=== PATIENT | female | born 1970 | race Caucasian/White ===

== ENCOUNTER 2019-10-12 17:00 | Emergency (ER) | payer SELFPAY ==
[~2019-10-12] VITALS: Ht 170.2 cm; Wt 122.5 kg
[~2019-10-12 17:00] MED LIST: ACHD5005 PO; BSP10T PO; BUSP5TAB59 PO; CETI10CA PO; CLIN-62 PO; DCS100C PO; DICL50TA4 PO; DICL75TA2 PO; DULO60CA6 PO; FLUO20CA25 PO; HC A28.3 PR; HYDR1TAB PO; IBP600T1 PO; LORA1TAB PO; METO25TA2 PO; MULT-963 PO; OMEP20TA2 PO; OMG1KC PO; OXYC-12 PO; QNPR20T PO; RNT150T PO; SIMV10TA3 PO; VITAMIN B PO; VNL37.5T PO; ZOLM2.5T5 PO
--- NOTE | 2019-10-12 17:23 | ED GI ---
General Chief Complaint: Rect Problems Stated Complaint: HEMORRHOID ISSUES Nursing Triage Note: pt amb to rm 6 with complaint of thrombosed hemrrhoid. Sepsis Screen: No Definite Risk Source of Information: Patient Exam Limitations: No Limitations History of Present Illness Date Seen by Provider: October 12, 2019 Time Seen by Provider: 17:21 Initial Comments 49-year-old female who presents to the emergency room with complaints of hemorrhoid pain for the past week. She's had numerous hemorrhoids in the past including thrombosed and hemorrhoidectomy. She is concerned that this wound could possibly be coming thrombosed. She has been using hydrocortisone cream/Preparation H and Tucks pads without improvement. Timing/Duration: 1 Week Associated Symptoms: Denies Symptoms Allergies and Home Medications Allergies Coded Allergies: sumatriptan (Unverified Allergy, Unknown, 11/12/11) sumatriptan succinate (Unverified Allergy, Unknown, 11/12/11) ergotamine (Verified Adverse Reaction, Mild, VOMITING, 09/06/12) sulfamethoxazole (Verified Adverse Reaction, Mild, HIVES, 09/06/12) trimethoprim (Verified Adverse Reaction, Mild, HIVES, 09/06/12) Uncoded Allergies: PCN (Allergy, Unknown, HIVES, 12/03/12) Home Medications Buspirone Hcl 5 Mg Tab, 7.5 MG PO BID, (Reported) TAKE 1 AND 1/2 OF A 5 MG TABLET TWICE DAILY (7.5 MG TOTAL TWICE DAILY) Cetirizine Hcl 10 Mg Capsule, 10 MG PO DAILY, (Reported) Diclofenac Sodium 75 Mg Tablet.dr, 75 MG PO BID, (Reported) Docusate Sodium 100 Mg Cap, 100 MG PO BID Prescribed by: MASOUD WALLER on 12/10/12 1000 Duloxetine Hcl 60 Mg Capsule.dr, 60 MG PO DAILY, (Reported) Hydrocodone Bit/Acetaminophen 1 Tab Tablet, 1-2 TAB PO q 4-6 hrs PRN Prescribed by: MASOUD WALLER on 12/10/12 1000 Hydrocortisone/Pramoxine 30 Gm Cream.gm., 0 MD QID PRN APPLY TO AFFECTED AREA Prescribed by: BRITT CORTEZ on 12/16/12 0121 Ibuprofen 600 Mg Tab, 600 MG PO Q6H PRN, (Reported) NEEDED FOR PAIN Ibuprofen 600 Mg Tab, 600 MG PO Q6H Prescribed by: MASOUD WALLER on 12/10/12 1000 Metoprolol Tartrate 25 Mg Tablet, 25 MG PO BID, (Reported) Multivitamin 1 Each Tablet, 1 TAB PO DAILY, (Reported) Norton 3 Polyunsat Fatty Acids 1,000 Mg Cap, 2,000 MG PO BID, (Reported) TAKE 2 (1000 MG) CAPSULES TWICE DAILY Omeprazole 20 Mg Tablet.dr, 20 MG PO DAILY, (Reported) Oxycodone Hcl/Acetaminophen 1 Each Tablet, 1 EACH PO Q4H Use sparingly as needed for uncontrolled pain Prescribed by: BRITT CORTEZ on 12/16/12 0121 Quinapril Hcl 20 Mg Tab, 20 MG PO DAILY, (Reported) Simvastatin 10 Mg Tablet, 10 MG PO DAILY, (Reported) Patient Home Medication List Home Medication List Reviewed: Yes Review of Systems Review of Systems Constitutional: see HPI; No chills, No fever Gastrointestinal: See HPI, Other (hemorrhoids) All Other Systems Reviewed Negative Unless Noted: Yes Past Cwweytx-Ruaxxo-Dflekr Hx Past Med/Social Hx: Reviewed Nursing Past Med/Soc Hx Patient Social History Alcohol Use: Occasionally Uses Recreational Drug Use: No Smoking Status: Current Everyday Smoker Recent Foreign Travel: No Contact w/Someone Who Travel: No Recent Infectious Disease Expo: No Recent Hopitalizations: No Immunizations Up To Date Tetanus Booster (TDap): Unknown Date of Pneumonia Vaccine: Mar 09, 2008 Seasonal Allergies Seasonal Allergies: Yes Past Medical History Surgeries: Yes (DENTAL, HEMORRHOIDDECTOMY, UTERINE ABLATION, COLONOSCOPY) Gallbladder, Hysterectomy Respiratory: Yes Sleep Apnea Cardiac: Yes (SVT) High Cholesterol, Hypertension Neurological: Yes (MIGRAINES) Headaches /Migraines Reproductive Disorders: Yes (MENORRHAGIA, RIGHT OVARIAN CYST) 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 Gastrointestinal: Yes (IBS) Gastroesophageal Reflux, Chronic Constipation, Hemorrhoids, Chronic Diarrhea, Polyps, Hiatal Hernia, Irritable Bowel Musculoskeletal: Yes (CHRONIC GENERALIZED PAIN) Arthritis, Chronic Back Pain Endocrine: Yes Hypothyroidsim Cancer: No Psychosocial: Yes Anxiety, PTSD, Depression Integumentary: No Blood Disorders: No Adverse Reaction/Blood Tranf: No Family Medical History Reviewed Nursing Family Hx Physical Exam Vital Signs Vital Signs - First Documented 10/12/19 17:04 Temp 36.8 Pulse 70 Resp 20 B/P (MAP) 131/75 (93) Pulse Ox 95 O2 Delivery Room Air Capillary Refill : Less Than 3 Seconds Height/Weight/BMI Height: 5'7" Weight: 275lbs. oz. 124.537478my; 42.00 BMI Method:Stated General Appearance: WD/WN, no apparent distress Respiratory: chest non-tender, lungs clear, normal breath sounds, no respiratory distress, no accessory muscle use Cardiovascular: normal peripheral pulses, regular rate, rhythm, no edema, no gallop, no JVD, no murmur Rectal: hemorrhoids (one small pea-sized external hemorrhoid. Normal skin tone and is non-thrombosed. Hemorrhoid is a compressible.) Extremities: normal capillary refill Neurologic/Psychiatric: alert, normal mood/affect, oriented x 3 Skin: normal color, warm/dry Exam Comments Rectal exam was assisted by Derrick Marino RN. Progress/Results/Core Measures Results/Orders My Orders Orders - JIMBO HONG Lidocaine 2% Viscous 15 Ml (Xylocaine Vi (10/12/19 17:30) Medications Given in ED Current Medications Medications Dose Ordered Sig/Rose Route Start Time Stop Time Status Last Admin Dose Admin Lidocaine HCl 30 ml ONCE ONCE PO 10/12/19 17:30 10/12/19 17:31 DC 10/12/19 17:45 30 ML Vital Signs/I&O 10/12/19 10/12/19 17:04 17:51 Temp 36.8 36.8 Pulse 70 70 Resp 20 20 B/P (MAP) 131/75 (93) 131/75 (93) Pulse Ox 95 95 O2 Delivery Room Air Blood Pressure Mean: 93 Progress Progress Note : Progress Note The patient was given viscous lidocaine soaked gauze to assist with discomfort. Instructed to continue home treatment and follow-up. She agrees with plan of car e, plans for discharge, return precautions were given. Departure Impression Primary Impression: External hemorrhoids without complication Disposition: HOME, SELF-CARE Condition: Stable/Unchanged Departure-Patient Inst. Decision time for Depature: 17:22 Referrals: [facility] (PCP) Primary Care Physician MELIZA GUAJARDO (Family) Primary Care Physician Patient Instructions: Hemorrhoids Add. Discharge Instructions: Consisting consume a liquid diet and stool softeners to keep your stool soft to prevent pressure when having a bowel movement. Continue to use your hydrocortisone cream at home. You may use the topical he soaked lidocaine for topical pain relief. Follow-up with your PCP within 1 week for recheck. Return back to the emergency room for worsening symptoms or concerns as needed. All discharge instructions reviewed with patient and/or family. Voiced understanding. JIMBO HONG October 12, 2019 17:23
[2019-10-12] MEDS ORDERED: LIDOCAINE 2% VISCOUS 15 ML UDC PO ONE (17:30)
[2019-10-12 17:51] VITALS: BP 131/75
== END 2019-10-12 17:51 | disposition home or self-care (01) ==
LOC: EDUNIT# 17:00 → ER 17:01
DX: K64.4 Residual hemorrhoidal skin tags (principal); I10 Essential (primary) hypertension; E78.00 Pure hypercholesterolemia, unspecified; G43.909 Migraine, unspecified, not intractable, without status migrainosus; K58.2 Mixed irritable bowel syndrome; K21.9 Gastro-esophageal reflux disease without esophagitis; M54.9 Dorsalgia, unspecified; G89.29 Other chronic pain; M19.91 Primary osteoarthritis, unspecified site; E03.9 Hypothyroidism, unspecified; F41.9 Anxiety disorder, unspecified; F43.10 Post-traumatic stress disorder, unspecified; F32.9 Major depressive disorder, single episode, unspecified; G47.30 Sleep apnea, unspecified; I47.1 Supraventricular tachycardia; F17.200 Nicotine dependence, unspecified, uncomplicated; Z79.899 Other long term (current) drug therapy
CPT/HCPCS: 99282

== ENCOUNTER 2020-12-08 11:58 | Emergency (ER) | payer OTHER ==
[~2020-12-08] VITALS: Ht 170 cm; Wt 113.0 kg
--- NOTE | 2020-12-08 12:15 | ED General ---
General Stated Complaint: NAUSEA,PASSED OUT Source of Information: Patient Exam Limitations: No Limitations History of Present Illness Date Seen by Provider: Dec 08, 2020 Time Seen by Provider: 12:13 Initial Comments To ER by private vehicle with reports of a syncopal event and nausea. She was at Dr. ROLON's office in [facility]. She was going in for a routine appointment. She became nauseated and lightheaded and went back to her car. She then vomited. She then passed out. Upon awakening she had an abrasion to her forehead where she hit the ground, several people standing over her. She has felt lethargic but is starting to come back to normal now. She felt fine upon awakening this morning. She is on Victoza. She denies chest pain or shortness of breath or abdominal pain. She denies headache or neck pain. Timing/Duration: 1-2 Days Severity: Moderate Associated Systoms: Nausea/Vomiting Allergies and Home Medications Allergies Coded Allergies: sumatriptan (Unverified Allergy, Unknown, 11/12/11) sumatriptan succinate (Unverified Allergy, Unknown, 11/12/11) ergotamine (Verified Adverse Reaction, Mild, VOMITING, 09/06/12) sulfamethoxazole (Verified Adverse Reaction, Mild, HIVES, 09/06/12) trimethoprim (Verified Adverse Reaction, Mild, HIVES, 09/06/12) Uncoded Allergies: PCN (Allergy, Unknown, HIVES, 12/03/12) Home Medications Buspirone Hcl 5 Mg Tab, 7.5 MG PO BID, (Reported) TAKE 1 AND 1/2 OF A 5 MG TABLET TWICE DAILY (7.5 MG TOTAL TWICE DAILY) Cetirizine Hcl 10 Mg Capsule, 10 MG PO DAILY, (Reported) Diclofenac Sodium 75 Mg Tablet., 75 MG PO BID, (Reported) Docusate Sodium 100 Mg Cap, 100 MG PO BID Prescribed by: MASOUD WALLER on 12/10/12 1000 Duloxetine Hcl 60 Mg Capsule.dr, 60 MG PO DAILY, (Reported) Hydrocodone Bit/Acetaminophen 1 Tab Tablet, 1-2 TAB PO q 4-6 hrs PRN Prescribed by: MASOUD WALLER on 12/10/12 1000 Hydrocortisone/Pramoxine 30 Gm Cream.gm., 0 GA QID PRN APPLY TO AFFECTED AREA Prescribed by: BRITT CORTEZ on 12/16/12120 Ibuprofen 600 Mg Tab, 600 MG PO Q6H PRN, (Reported) NEEDED FOR PAIN Ibuprofen 600 Mg Tab, 600 MG PO Q6H Prescribed by: MASOUD WALLER on 12/10/12 1000 Metoprolol Tartrate 25 Mg Tablet, 25 MG PO BID, (Reported) Multivitamin 1 Each Tablet, 1 TAB PO DAILY, (Reported) [place] 3 Polyunsat Fatty Acids 1,000 Mg Cap, 2,000 MG PO BID, (Reported) TAKE 2 (1000 MG) CAPSULES TWICE DAILY Omeprazole 20 Mg Tablet.dr, 20 MG PO DAILY, (Reported) Oxycodone Hcl/Acetaminophen 1 Each Tablet, 1 EACH PO Q4H Use sparingly as needed for uncontrolled pain Prescribed by: BRITT CORTEZ on 12/16/12120 Quinapril Hcl 20 Mg Tab, 20 MG PO DAILY, (Reported) Simvastatin 10 Mg Tablet, 10 MG PO DAILY, (Reported) Patient Home Medication List Home Medication List Reviewed: Yes Review of Systems Review of Systems Constitutional: see HPI EENTM: see HPI Respiratory: no symptoms reported Cardiovascular: no symptoms reported Genitourinary: no symptoms reported Musculoskeletal: no symptoms reported Skin: no symptoms reported Psychiatric/Neurological: No Symptoms Reported Hematologic/Lymphatic: No Symptoms Reported Immunological/Allergic: no symptoms reported Past Jqsdbqk-Xqxkoj-Egbwdo Hx Immunizations Up To Date Tetanus Booster (TDap): Unknown Seasonal Allergies Seasonal Allergies: Yes Past Medical History Surgeries: Yes (DENTAL, HEMORRHOIDDECTOMY, UTERINE ABLATION, COLONOSCOPY) Gallbladder, Hysterectomy Respiratory: Yes Sleep Apnea Cardiac: Yes (SVT) High Cholesterol, Hypertension Neurological: Yes (MIGRAINES) Headaches /Migraines Reproductive Disorders: Yes (MENORRHAGIA, RIGHT OVARIAN CYST) 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 oz. 124.931432vd; 42.00 BMI Method:Stated General Appearance: No Apparent Distress, WD/WN, Other (Abrasion to the midline forehead. No epistaxis.) Eyes: Bilateral Eye Normal Inspection, Bilateral Eye PERRL, Bilateral Eye EOMI HEENT: PERRL/EOMI, TMs Normal Neck: Full Range of Motion, Normal Inspection Respiratory: Normal Breath Sounds, No Accessory Muscle Use, No Respiratory Distress Cardiovascular: Regular Rate, Rhythm, Normal Peripheral Pulses Gastrointestinal: Normal Bowel Sounds, Non Tender, Soft Extremity: Normal Capillary Refill, Normal Inspection Neurologic/Psychiatric: Alert, Oriented x3 Skin: Normal Color, Warm/Dry Progress/Results/Core Measures Suspected Sepsis SIRS Temperature: Pulse: Respiratory Rate: Laboratory Tests 12/08/20 12:12: White Blood Count 9.7 Blood Pressure / Mean: Laboratory Tests 12/08/20 12:12: Creatinine 0.95, Platelet Count 308, Total Bilirubin 0.2 Results/Orders Lab Results Laboratory Tests Test 12/08/20 12:12 12/08/20 12:39 Range/Units White Blood Count 9.7 4.3-11.0 10^3/uL Red Blood Count 4.14 3.80-5.11 10^6/uL Hemoglobin 12.9 11.5-16.0 g/dL Hematocrit 39 35-52 % Mean Corpuscular Volume 95 80-99 fL Mean Corpuscular Hemoglobin 31 25-34 pg Mean Corpuscular Hemoglobin Concent 33 32-36 g/dL Red Cell Distribution Width 11.9 10.0-14.5 % Platelet Count 308 130-400 10^3/uL Mean Platelet Volume 9.6 9.0-12.2 fL Immature Granulocyte % (Auto) 1 % Neutrophils (%) (Auto) 67 42-75 % Lymphocytes (%) (Auto) 24 12-44 % Monocytes (%) (Auto) 7 0-12 % Eosinophils (%) (Auto) 2 0-10 % Basophils (%) (Auto) 0 0-10 % Neutrophils # (Auto) 6.5 1.8-7.8 10^3/uL Lymphocytes # (Auto) 2.3 1.0-4.0 10^3/uL Monocytes # (Auto) 0.6 0.0-1.0 10^3/uL Eosinophils # (Auto) 0.2 0.0-0.3 10^3/uL Basophils # (Auto) 0.0 0.0-0.1 10^3/uL Immature Granulocyte # (Auto) 0.1 0.0-0.1 10^3/uL Sodium Level 138 135-145 MMOL/L Potassium Level 4.4 3.6-5.0 MMOL/L Chloride Level 102 98-107 MMOL/L Carbon Dioxide Level 25 21-32 MMOL/L Anion Gap 11 5-14 MMOL/L Blood Urea Nitrogen 16 7-18 MG/DL Creatinine 0.95 0.60-1.30 MG/DL Estimat Glomerular Filtration Rate > 60 BUN/Creatinine Ratio 17 Glucose Level 173 H 70-105 MG/DL Calcium Level 9.9 8.5-10.1 MG/DL Corrected Calcium 9.7 8.5-10.1 MG/DL Total Bilirubin 0.2 0.1-1.0 MG/DL Aspartate Amino Transf (AST/SGOT) 52 H 5-34 U/L Alanine Aminotransferase (ALT/SGPT) 102 H 0-55 U/L Alkaline Phosphatase 65 40-136 U/L Troponin I < 0.028 <0.028 NG/ML Total Protein 6.8 6.4-8.2 GM/DL Albumin 4.3 3.2-4.5 GM/DL Urine Color YELLOW Urine Clarity CLEAR Urine pH 5.5 5-9 Urine Specific Keller 1.020 1.016-1.022 Urine Protein NEGATIVE NEGATIVE Urine Glucose (UA) NEGATIVE NEGATIVE Urine Ketones NEGATIVE NEGATIVE Urine Nitrite NEGATIVE NEGATIVE Urine Bilirubin NEGATIVE NEGATIVE Urine Urobilinogen 0.2 < = 1.0 MG/DL Urine Leukocyte Esterase 1+ H NEGATIVE Urine RBC (Auto) NEGATIVE NEGATIVE Urine RBC NONE /HPF Urine WBC 5-10 H /HPF Urine Squamous Epithelial Cells 2-5 /HPF Urine Crystals NONE /LPF Urine Bacteria TRACE /HPF Urine Casts NONE /LPF Urine Mucus NEGATIVE /LPF Urine Culture Indicated YES My Orders Orders - TATIANA ZAVALA LOAN PROCESSOR Cbc With Automated Diff (12/08/20 12:09) Comprehensive Metabolic Panel (12/08/20 12:09) Ua Culture If Indicated (12/08/20 12:09) Ed Iv/Invasive Line Start (12/08/20 12:09) Ct Head/Cervical Spine Wo (12/08/20 12:09) Ekg Tracing (12/08/20 12:09) Continuous Ekg Monitoring (12/08/20 12:09) Troponin I (12/08/20 12:09) Urine Culture (12/08/20 12:39) Vital Signs/I&O 12/08/20 12:00 Temp 36.8 Pulse 88 Resp 18 B/P (MAP) 126/82 (97) Pulse Ox 95 Capillary Refill : Diagnostic Imaging Diagonstic Imaging: CT Comments NAME: SENDY LOERA [facility] REC#: [id number] PT STATUS: REG ER : 1970 PHYSICIAN: TATIANA ZAVALA APRN ADMIT DATE: 12/08/20/ER Draft Date of Exam:12/08/20 CT HEAD/CERVICAL SPINE WO Clinical indication: Patient is status post fall. Patient has syncopal episode outside doctor's office. Patient passed out hitting her forehead on concrete. Exam: Axial Head CT without IV contrast with sagittal and coronal reformations. Axial CT scan of the cervical spine with sagittal and coronal reformations. Auto Exposure Controls were utilized during the CT exam to meet ALARA standards for radiation dose reduction. Comparison: None. Findings: Head CT: There is no evidence of acute cerebral infarct, intracranial hemorrhage, or gross mass effect. The brain parenchymal volume appears appropriate for patient's age. There is normal nevarez-white matter distinction. There is no significant midline shift or herniation. There is no evidence of hydrocephalus. The basal cisterns are unremarkable. There are numerous small lytic lesions involving the skull. Otherwise the skull, extracranial soft tissue, and orbits are unremarkable. The paranasal sinuses are unremarkable. Temporal bones show no significant abnormality. Cervical spine: Patient body habitus and streak artifact limits evaluation of the C5-T2 vertebra. There is no gross cervical spine fracture or dislocation. There is loss of cervical lordosis which is nonspecific. There are cervical spine vertebral body spurs and facet arthropathy. Ununited posterior elements of the C2 vertebra noted. There are no definite lytic lesions involving the cervical spine as visualized. Visualized neck soft tissue structures and upper lung juarez are unremarkable. Impression: 1: There is no evidence of acute intracranial process. There is no intracranial hemorrhage or skull fracture. 2: There is cervical spine degenerative disease with no acute fracture or dislocation. 3: There are numerous lytic lesions throughout the skull which are nonspecific. Etiology such as myeloma or metastatic disease should be excluded. Nuclear medicine whole body bone scan may help better evaluate. Dictated on workstation # [id number] Dict: 12/08/20 1312 Trans: 12/08/20 1335 [id number] Interpreted by: LOIS YU MD Electronically signed by: Departure Impression Primary Impression: Syncope Additional Impression: Lytic lesions of skull Disposition: HOME, SELF-CARE Condition: Stable Departure-Patient Inst. Decision time for Depature: 13:24 Referrals: [facility] (PCP) Primary Care Physician DALTON CARNEY APRN (Family) Primary Care Physician Patient Instructions: Syncope (Fainting) (DC) Add. Discharge Instructions: Follow up With primary care within 1 week for further evaluation of the abnormal appearance of your skull on CT. This will likely be followed up with a whole body bone scan. Return to ER for any concerns. Copy Copies To 1: JOSÉ MIGUEL COTTO PETER J APRN Dec 08, 2020 12:15
[2020-12-08 12:19] LABS: BASOPHILS % (AUTO) 0 % (0-10); EOSINOPHILS # (AUTO) 0.2 10^3/uL (0.0-0.3); EOSINOPHILS % (AUTO) 2 % (0-10); HEMATOCRIT 39 % (35-52); HEMOGLOBIN 12.9 g/dL (11.5-16.0); LYMPHOCYTES # (AUTO) 2.3 10^3/uL (1.0-4.0); LYMPHOCYTES % (AUTO) 24 % (12-44); MEAN CORPUSCULAR HEMOGLOBIN 31 pg (25-34); MEAN CORPUSCULAR HGB CONC 33 g/dL (32-36); MEAN CORPUSCULAR VOLUME 95 fL (80-99); MEAN PLATELET VOLUME 9.6 fL (9.0-12.2); MONOCYTES # (AUTO) 0.6 10^3/uL (0.0-1.0); MONOCYTES % (AUTO) 7 % (0-12); NEUTROPHILS # (AUTO) 6.5 10^3/uL (1.8-7.8); NEUTROPHILS % (AUTO) 67 % (42-75); PLATELET COUNT 308 10^3/uL (130-400); WHITE BLOOD COUNT 9.7 10^3/uL (4.3-11.0)
[2020-12-08 12:29] LABS: ALBUMIN 4.3 GM/DL (3.2-4.5); CHLORIDE 102 MMOL/L (98-107); POTASSIUM 4.4 MMOL/L (3.6-5.0); SODIUM 138 MMOL/L (135-145)
[2020-12-08 12:30] LABS: CALCIUM 9.9 MG/DL (8.5-10.1)
[2020-12-08 12:31] LABS: GLUCOSE 173 MG/DL (70-105)
[2020-12-08 12:32] LABS: TOTAL PROTEIN 6.8 GM/DL (6.4-8.2)
[2020-12-08 12:33] LABS: CARBON DIOXIDE 25 MMOL/L (21-32)
[2020-12-08 12:34] LABS: BILIRUBIN,TOTAL 0.2 MG/DL (0.1-1.0)
[2020-12-08 12:35] LABS: ALKALINE PHOSPHATASE 65 U/L (40-136); CREATININE SERUM 0.95 MG/DL (0.60-1.30); GFR ESTIMATED > 60
[2020-12-08 12:36] LABS: BUN/CREATININE RATIO 17
[2020-12-08 12:38] LABS: ALANINE AMINOTRANSFERASE 102 U/L (0-55)
[2020-12-08 12:47] LABS: BILIRUBIN,URINE NEGATIVE (NEGATIVE); CLARITY,URINE CLEAR; COLOR,URINE YELLOW; GLUCOSE, URINE (UA) NEGATIVE (NEGATIVE); KETONES,URINE NEGATIVE (NEGATIVE); LEUKOCYTE ESTERASE ,URINE 1+ (NEGATIVE); NITRITE,URINE NEGATIVE (NEGATIVE); PH,URINE 5.5 (5-9); PROTEIN,URINE NEGATIVE (NEGATIVE)
[2020-12-08 13:00] LABS: BACTERIA,URINE TRACE /HPF
--- NOTE | 2020-12-08 13:36 | Diagnostic Imaging Report ---
Clinical indication: Patient is status post fall. Patient has syncopal episode outside doctor's office. Patient passed out hitting her forehead on concrete. Exam: Axial Head CT without IV contrast with sagittal and coronal reformations. Axial CT scan of the cervical spine with sagittal and coronal reformations. Auto Exposure Controls were utilized during the CT exam to meet ALARA standards for radiation dose reduction. Comparison: None. Findings: Head CT: There is no evidence of acute cerebral infarct, intracranial hemorrhage, or gross mass effect. The brain parenchymal volume appears appropriate for patient's age. There is normal nevarez-white matter distinction. There is no significant midline shift or herniation. There is no evidence of hydrocephalus. The basal cisterns are unremarkable. There are numerous small lytic lesions involving the skull. Otherwise the skull, extracranial soft tissue, and orbits are unremarkable. The paranasal sinuses are unremarkable. Temporal bones show no significant abnormality. Cervical spine: Patient body habitus and streak artifact limits evaluation of the C5-T2 vertebra. There is no gross cervical spine fracture or dislocation. There is loss of cervical lordosis which is nonspecific. There are cervical spine vertebral body spurs and facet arthropathy. Ununited posterior elements of the C2 vertebra noted. There are no definite lytic lesions involving the cervical spine as visualized. Visualized neck soft tissue structures and upper lung juarez are unremarkable. Impression: 1: There is no evidence of acute intracranial process. There is no intracranial hemorrhage or skull fracture. 2: There is cervical spine degenerative disease with no acute fracture or dislocation. 3: There are numerous lytic lesions throughout the skull which are nonspecific. Etiology such as myeloma or metastatic disease should be excluded. Nuclear medicine whole body bone scan may help better evaluate. Dictated by: Dictated on workstation # [id number]
[2020-12-08 13:57] VITALS: BP 126/82
== END 2020-12-08 13:57 | disposition home or self-care (01) ==
LOC: EDUNIT# 11:58 → ER 12:00
DX: S00.81XA Abrasion of other part of head, initial encounter (principal); R55 Syncope and collapse; M89.50 Osteolysis, unspecified site; I10 Essential (primary) hypertension; G47.30 Sleep apnea, unspecified; E78.00 Pure hypercholesterolemia, unspecified; K21.9 Gastro-esophageal reflux disease without esophagitis; G89.29 Other chronic pain; F41.9 Anxiety disorder, unspecified; F32.9 Major depressive disorder, single episode, unspecified; M54.9 Dorsalgia, unspecified; Z79.899 Other long term (current) drug therapy; Z79.891 Long term (current) use of opiate analgesic; W22.8XXA Striking against or struck by other objects, initial encounter
CPT/HCPCS: 36415; 70450; 72125; 80053; 81000; 84484; 85025; 87088; 93005

== ENCOUNTER → 2020-12-20 | Outpatient (CLI) | payer SELFPAY ==
--- NOTE | 2020-12-20 16:17 | Diagnostic Imaging Report ---
INDICATION: Fell on December 08 hitting her head. COMPARISON: CT scan of 12/08/2020. TECHNIQUE: 27.0 mCi of technetium 99M MDP was given IV. Three hour delayed images were obtained. FINDINGS: There is good uptake throughout the skeletal system. No foci of abnormal uptake are demonstrated. Specifically, there is no activity in the calvarium to correlate with the lytic lesions noted on the CT scan. IMPRESSION: Normal whole body bone scan. This does not exclude multiple myeloma as a differential as myeloma due to lytic nature rarely shows increased uptake with a bone scan. Dictated by: Dictated on workstation # [id number]
== END ==
LOC: CARD 12:00
PROVIDERS: ATTEND Nurse Practitioner
DX: R93.0 Abnormal findings on diagnostic imaging of skull and head, not elsewhere classified (principal); W19.XXXA Unspecified fall, initial encounter
CPT/HCPCS: 78306; A9503

== ENCOUNTER 2020-12-22 14:36 | Outpatient (RCR) | payer SELFPAY ==
[2020-12-22 16:18] LABS: BASOPHILS % (AUTO) 1 % (0-10); EOSINOPHILS # (AUTO) 0.3 10^3/uL (0.0-0.3); EOSINOPHILS % (AUTO) 4 % (0-10); HEMATOCRIT 40 % (35-52); HEMOGLOBIN 13.1 g/dL (11.5-16.0); LYMPHOCYTES # (AUTO) 2.8 10^3/uL (1.0-4.0); LYMPHOCYTES % (AUTO) 33 % (12-44); MEAN CORPUSCULAR HEMOGLOBIN 31 pg (25-34); MEAN CORPUSCULAR HGB CONC 33 g/dL (32-36); MEAN CORPUSCULAR VOLUME 93 fL (80-99); MEAN PLATELET VOLUME 9.7 fL (9.0-12.2); MONOCYTES # (AUTO) 0.6 10^3/uL (0.0-1.0); MONOCYTES % (AUTO) 7 % (0-12); NEUTROPHILS # (AUTO) 4.6 10^3/uL (1.8-7.8); NEUTROPHILS % (AUTO) 55 % (42-75); PLATELET COUNT 336 10^3/uL (130-400); WHITE BLOOD COUNT 8.3 10^3/uL (4.3-11.0)
[2020-12-22 16:38] LABS: ALBUMIN 4.4 GM/DL (3.2-4.5); BILIRUBIN,TOTAL 0.3 MG/DL (0.1-1.0); CALCIUM 9.7 MG/DL (8.5-10.1); CREATININE SERUM 0.97 MG/DL (0.60-1.30); POTASSIUM 4.1 MMOL/L (3.6-5.0); TOTAL PROTEIN 7.1 GM/DL (6.4-8.2)
[2020-12-27 12:55] LABS: IMMUNOFIX PATH REPORT NUMBER Complete (Complete)
== END 2020-12-23 15:04 | disposition home or self-care (01) ==
LOC: ONC 14:36
PROVIDERS: ATTEND Internal Medicine Hematology & Oncology
DX: Z12.31 Encounter for screening mammogram for malignant neoplasm of breast (principal); M89.9 Disorder of bone, unspecified; R05 Cough; R06.02 Shortness of breath; Z86.010 Personal history of colon polyps; Z72.0 Tobacco use
CPT/HCPCS: 80053; 82232; 82784 ×3; 83883; 83970; 84155; 84165; 84166; 85025; 86334; 86335; G0463; 99214

== ENCOUNTER → 2021-01-03 | Outpatient (CLI) | payer OTHER ==
--- NOTE | 2021-01-03 16:45 | Diagnostic Imaging Report ---
INDICATION: Routine screening. COMPARISON is made with prior mammograms 05/23/2016 and 06/24/2008. 2-D and 3-D bilateral screening mammography was performed with CAD. Scattered fibroglandular densities are identified bilaterally. There are scattered benign calcifications. Intraparenchymal lymph node the upper outer right breast posterior depth is noted. No spiculated mass or malignant appearing microcalcifications are seen. The axillae are unremarkable. IMPRESSION: BI-RADS Category 2 No mammographic features suspicious for malignancy are identified. ACR BI-RADS Category 2: Benign findings. Result letter will be mailed to the patient. Note: At least 10% of breast cancer is not imaged by mammography. Dictated by: Dictated on workstation # [id number]
== END ==
LOC: RAD 15:15
PROVIDERS: ATTEND Internal Medicine Hematology & Oncology
DX: Z12.31 Encounter for screening mammogram for malignant neoplasm of breast (principal); Z72.0 Tobacco use
CPT/HCPCS: 77063; 77067

== ENCOUNTER → 2021-01-03 | Outpatient (CLI) | payer OTHER ==
--- NOTE | 2021-01-03 16:14 | Diagnostic Imaging Report ---
PROCEDURE: CT chest without contrast. TECHNIQUE: Multiple contiguous axial images were obtained through the chest without the use of intravenous contrast. Auto Exposure Controls were utilized during the CT exam to meet ALARA standards for radiation dose reduction. INDICATION: Short of breath, tobacco use, cough. FINDINGS: The lungs are well-expanded with no mass or infiltrate. There is no interstitial lung disease. There is no bronchiectasis. There is no effusion or pneumothorax. There is no mediastinal or hilar adenopathy. There is no pericardial effusion. There is no bony abnormality. IMPRESSION: No abnormality is seen. Dictated by: Dictated on workstation # [id number]
== END ==
LOC: RAD 14:53
PROVIDERS: ATTEND Internal Medicine Hematology & Oncology
DX: R05 Cough (principal); R06.02 Shortness of breath; R93.7 Abnormal findings on diagnostic imaging of other parts of musculoskeletal system; Z72.0 Tobacco use
CPT/HCPCS: 71250

== ENCOUNTER 2021-01-05 12:15 | Day surgery (SDC) | payer OTHER ==
[2021-01-05] VITALS (10 sets, daily range): BP systolic 102–138; BP diastolic 54–89
[~2021-01-05] VITALS: Ht 170 cm; Wt 113.0 kg
[2021-01-05 11:32] LABS: ABSOLUTE RETIC # 121 10e9/uL (24-90); BASOPHILS # (AUTO) 0.1 10^3/uL (0.0-0.1); BASOPHILS % (AUTO) 1 % (0-10); EOSINOPHILS # (AUTO) 0.3 10^3/uL (0.0-0.3); EOSINOPHILS % (AUTO) 3 % (0-10); HEMATOCRIT 42 % (35-52); LYMPHOCYTES # (AUTO) 2.4 10^3/uL (1.0-4.0); LYMPHOCYTES % (AUTO) 26 % (12-44); MEAN CORPUSCULAR HEMOGLOBIN 31 pg (25-34); MEAN CORPUSCULAR HGB CONC 34 g/dL (32-36); MEAN CORPUSCULAR VOLUME 93 fL (80-99); MEAN PLATELET VOLUME 9.5 fL (9.0-12.2); MONOCYTES # (AUTO) 0.7 10^3/uL (0.0-1.0); MONOCYTES % (AUTO) 8 % (0-12); NEUTROPHILS # (AUTO) 5.8 10^3/uL (1.8-7.8); NEUTROPHILS % (AUTO) 63 % (42-75); PLATELET COUNT 390 10^3/uL (130-400); RETICULOCYTE % 2.68 % (0.50-2.40); WHITE BLOOD COUNT 9.3 10^3/uL (4.3-11.0)
[2021-01-05 11:40] LABS: PROTHROMBIN TIME PATIENT 13.7 SEC (12.2-14.7)
[2021-01-05 11:44] LABS: EOSINOPHILS % (MANUAL) 1 %; LYMPHOCYTES % (MANUAL) 28 %; MONOCYTES % (MANUAL) 7 %; NEUTROPHILS % (MANUAL) 64 %; RBC MORPH NORMAL
[~2021-01-05 12:15] MED LIST changes: +LIDOCAINE 1% INJ 20 ML 20 ML VIAL INJ ONE; +MIDAZOLAM 2 MG/2 ML (VERSED) VIAL IVP ONE; +NS IV 1000 ML 1,000 ML IV STA; +fentaNYL INJ 100 MCG/2 ML AMP IVP ONE
[2021-01-05] MEDS ORDERED: HYDROcodone/APAP 5 MG/325 MG (LORTAB) TAB PO PRN (13:15)
--- NOTE | 2021-01-05 13:51 | Pre-Op Note & Conscious Sedat ---
Pre-Operative Progress Note H&P Reviewed The H&P was reviewed, patient examined and no changes noted. Date H&P Reviewed: Jan 05, 2021 Time H&P Reviewed: 12:00 Pre-Op Diagnosis: lytic bone lesion Conscious Sedation Pre-Proced Time 12:00 ASA Score 2 For ASA 3 and 4: Consider anesthesia and medical clearance. Also, for patients with a history of failed moderate sedation consider anesthesia. Airway Lungs Heart ASA score ASA 1: a normal healthy patient ASA 2: a patient with a mild systemic disease (mid diabetes, controlled hypertension, obesity ASA 3: a patient with a severe systemic disease that limits activity (angina, COPD, prior Myocardial infarction) ASA 4: a patient with an incapacitating disease that is a constant threat to life (CHF, renal failure) ASA 5: a moribund patient not expected to survive 24 hrs. (ruptured aneurysm) ASA 6: a declared brain- patient whose organs are being harvested. For emergent operations, add the letter E after the classification Mallampati Classification Grade 2 Sedation Plan Analgesia, Amnesia, Plan communicated to team members, Discussed options with p atient/fam, Discussed risks with patient/fam The patient is an appropriate candidate to undergo the planned procedure, sedation, and anesthesia. The patient immediately re-assessed prior to indication. JULIANN LYONS MD Jan 05, 2021 13:51
--- NOTE | 2021-01-05 14:31 | Diagnostic Imaging Report ---
Indication: Lytic bone lesions. Patient presents for CT-guided bone marrow aspiration and biopsy. Patient is brought to the CT suite placed on table in the prone position. Axial imaging through the pelvis was performed to evaluate appropriate entry site. The skin of the low back was prepped and draped in usual sterile fashion. Small amount of 1% lidocaine was utilized for local anesthesia. Procedure was performed utilizing conscious sedation with radiology nursing and constant patient monitoring. Patient was given a total of 50 mcg of fentanyl intravenously. Total procedure time 6 minutes. Bone marrow needle was advanced and placed with its tip along the posterior cortex of the right iliac bone. The needle was advanced through the posterior cortex utilizing a bone marrow drill. 2 bone marrow aspirates were then obtained. Next, the drill was utilized to obtain a bone marrow core biopsy. The needle was removed and hemostasis was obtained using manual compression. Patient tolerated the procedure well and left the department in stable condition. IMPRESSION: Successful CT-guided bone marrow aspiration and core biopsy utilizing conscious sedation. Pathology results are currently pending. Dictated by: Dictated on workstation # [id number]
== END 2021-01-05 15:08 ==
LOC: RAD 12:15 → SDC 13:00 → RAD 15:08
PROVIDERS: ATTEND Internal Medicine Hematology & Oncology
DX: R70.1 Abnormal plasma viscosity (principal); M89.8X9 Other specified disorders of bone, unspecified site
CPT/HCPCS: 36415; 38222; 77012; 85007; 85027; 85045; 85055; 85610; 85730; 88237; 88264

== ENCOUNTER → 2021-01-31 | Outpatient (CLI) | payer OTHER ==
[~2021-01-31] MED LIST changes: -LIDOCAINE 1% INJ 20 ML 20 ML VIAL INJ ONE; -MIDAZOLAM 2 MG/2 ML (VERSED) VIAL IVP ONE; -NS IV 1000 ML 1,000 ML IV STA; -fentaNYL INJ 100 MCG/2 ML AMP IVP ONE
--- NOTE | 2021-01-31 13:13 | Diagnostic Imaging Report ---
INDICATION: Abnormal CT scan demonstrating multiple lytic lesions within the skull. TECHNIQUE: Serum blood glucose level at the time of injection was 140 mg/dL. Patient was administered 14.7 mCi F-18 FDG intravenously in the left antecubital location, and whole body PET imaging was performed. Noncontrast CT was also performed for attenuation correction and anatomic correlation. COMPARISON: No prior PET/CT studies are available for comparison. FINDINGS: There is symmetric activity throughout the brain. Soft tissues of the neck are unremarkable apart from some small areas of mild uptake involving the mandible at the midline and right parasymphyseal location. No correlate on the CT images is identified. No mediastinal or hilar hypermetabolism is seen. No definite pulmonary parenchymal hypermetabolism is identified. There is physiologic activity throughout the GI and tract. No suspicious hypermetabolic focus is seen. No osteolytic lesions are identified. Bilateral lower extremities are unremarkable. IMPRESSION: Essentially unremarkable whole body PET/CT study. No suspicious region of hypermetabolism is identified. Dictated by: Dictated on workstation # [id number]
== END ==
LOC: RAD 09:00
PROVIDERS: ATTEND Internal Medicine Hematology & Oncology
DX: M89.9 Disorder of bone, unspecified (principal)
CPT/HCPCS: 78816; A9552

== ENCOUNTER 2021-02-01 13:10 | Outpatient (RCR) | payer OTHER ==
[2021-02-14] MEDS ORDERED: BUDE10.2 IH (12:55)
[2021-02-14] MEDS ORDERED: MELO-170 PO (13:17)
[2021-02-14] MEDS ORDERED: RT-ALBUINH IH (13:17)
[2021-02-14] MEDS ORDERED: BREX1TAB PO (13:17)
[2021-02-14] MEDS ORDERED: OXYB10TA29 PO (13:17)
[2021-02-14] MEDS ORDERED: CYAN25008 SL (13:17)
[2021-02-14] MEDS ORDERED: GLIP10TA24 PO (13:17)
[2021-02-14] MEDS ORDERED: MONT10TA32 PO (13:17)
[2021-02-14] MEDS ORDERED: MMT17NA NS (13:17)
[2021-02-14] MEDS ORDERED: CLN.1T PO (13:17)
[2021-02-14] MEDS ORDERED: PSEU120T17 PO (13:17)
[2021-02-14] MEDS ORDERED: DULO60CA59 PO (13:17)
[2021-02-14] MEDS ORDERED: HYDR25TA4 PO (13:17)
[2021-02-14] MEDS ORDERED: EMPA10TA PO (13:17)
[2021-02-14] MEDS ORDERED: LISI20TA26 PO (13:17)
[2021-02-14] MEDS ORDERED: METF-397 PO (13:17)
[2021-02-14] MEDS ORDERED: LEVO112C4 PO (13:17)
[2021-02-14] MEDS ORDERED: GEMF600T88 PO (13:17)
[2021-02-14] MEDS ORDERED: PANT40TA52 PO (13:17)
[2021-02-14] MEDS ORDERED: SPIR25TA5 PO (13:17)
== END 2021-04-24 | disposition home or self-care (01) ==
LOC: ONC 13:10
PROVIDERS: ATTEND Internal Medicine Hematology & Oncology
DX: M89.9 Disorder of bone, unspecified (principal); I10 Essential (primary) hypertension; E03.9 Hypothyroidism, unspecified; M79.7 Fibromyalgia; E78.5 Hyperlipidemia, unspecified; E11.9 Type 2 diabetes mellitus without complications; Z80.0 Family history of malignant neoplasm of digestive organs; F17.210 Nicotine dependence, cigarettes, uncomplicated; Z79.84 Long term (current) use of oral hypoglycemic drugs; Z79.899 Other long term (current) drug therapy; Z80.1 Family history of malignant neoplasm of trachea, bronchus and lung; Z86.010 Personal history of colon polyps
CPT/HCPCS: 99213

== ENCOUNTER 2021-02-14 05:44 | Outpatient (CLI) | payer OTHER ==
[~2021-02-14] VITALS: Ht 170 cm; Wt 126.8 kg
[2021-02-14] MEDS ORDERED: BUDE10.2 IH (12:55)
[2021-02-14] MEDS ORDERED: DULO60CA59 PO (13:17)
[2021-02-14] MEDS ORDERED: BREX1TAB PO (13:17)
[2021-02-14] MEDS ORDERED: SPIR25TA5 PO (13:17)
[2021-02-14] MEDS ORDERED: GEMF600T88 PO (13:17)
[2021-02-14] MEDS ORDERED: OXYB10TA29 PO (13:17)
[2021-02-14] MEDS ORDERED: METF-397 PO (13:17)
[2021-02-14] MEDS ORDERED: PANT40TA52 PO (13:17)
[2021-02-14] MEDS ORDERED: GLIP10TA24 PO (13:17)
[2021-02-14] MEDS ORDERED: CYAN25008 SL (13:17)
[2021-02-14] MEDS ORDERED: LISI20TA26 PO (13:17)
[2021-02-14] MEDS ORDERED: HYDR25TA4 PO (13:17)
[2021-02-14] MEDS ORDERED: RT-ALBUINH IH (13:17)
[2021-02-14] MEDS ORDERED: CLN.1T PO (13:17)
[2021-02-14] MEDS ORDERED: PSEU120T17 PO (13:17)
[2021-02-14] MEDS ORDERED: MONT10TA32 PO (13:17)
[2021-02-14] MEDS ORDERED: MMT17NA NS (13:17)
[2021-02-14] MEDS ORDERED: MELO-170 PO (13:17)
[2021-02-14] MEDS ORDERED: EMPA10TA PO (13:17)
[2021-02-14] MEDS ORDERED: LEVO112C4 PO (13:17)
== END 2021-02-14 15:00 | disposition home or self-care (01) ==
LOC: PREOP 05:44
PROVIDERS: ATTEND Surgery
DX: Z01.818 Encounter for other preprocedural examination (principal)

== ENCOUNTER 2021-02-21 10:41 | Day surgery (SDC) | payer OTHER ==
[~2021-02-21] VITALS: Ht 170.2 cm; Wt 126.6 kg
[~2021-02-21 10:41] MED LIST changes: +BREX1TAB PO; +BUDE10.2 IH; +CLN.1T PO; +CYAN25008 SL; +DULO60CA59 PO; +EMPA10TA PO; +GEMF600T88 PO; +GLIP10TA24 PO; +HYDR25TA4 PO; +LACTATED RINGERS 1,000 ML IV STA; +LEVO112C4 PO; +LISI20TA26 PO; +MELO-170 PO; +METF-397 PO; +MMT17NA NS; +MONT10TA32 PO; +OXYB10TA29 PO; +PANT40TA52 PO; +PSEU120T17 PO; +RT-ALBUINH IH; +SPIR25TA5 PO
[2021-02-21] MEDS ORDERED: LACTATED RINGERS 1,000 ML IV ONE (10:43)
[2021-02-21 11:00] VITALS: BP 106/67
[2021-02-21] MEDS ORDERED: MIDAZOLAM 2 MG/2 ML (VERSED) VIAL ONE (11:38)
[2021-02-21] MEDS ORDERED: proPOfol 200 MG/20 ML (DIPRIVAN) VIAL IV ONE (11:39)
--- NOTE | 2021-02-21 11:39 | Progress Note-Pre Operative ---
Pre-Operative Progress Note H&P Reviewed The H&P was reviewed, patient examined and no changes noted. Date Seen by Provider: Feb 21, 2021 Time Seen by Provider: 11:39 Date H&P Reviewed: Feb 21, 2021 Time H&P Reviewed: 11:39 Pre-Operative Diagnosis: hx polyps DEANNE RAJPUT DO Feb 21, 2021 11:39
[2021-02-21 12:10] VITALS: BP 94/60
[2021-02-21 12:15] VITALS: BP_SYST 100; BP_SYST 104; BP_DIAS 55; BP_DIAS 58
[2021-02-21 12:46] VITALS: BP 96/50
[2021-02-21 12:47] VITALS: BP 96/50
--- NOTE | 2021-02-21 12:56 | Discharge Inst-Simple/Standard ---
Discharge Inst-Standard Patient Instructions/Follow Up Plan of Care/Instructions/FU: 2 weeks Yadira Activity as Tolerated: Yes Discharge Diet: Regular Diet DEANNE RAJPUT DO Feb 21, 2021 12:56
--- NOTE | 2021-02-21 14:29 | Anesthesia-General Post-Op ---
MAC Patient Condition Mental Status/LOC: Same as Preop Cardiovascular: Satisfactory Nausea/Vomiting: Absent Respiratory: Satisfactory Pain: Controlled Complications: Absent Post Op Complications Complications None Follow Up Care/Instructions Patient Instructions None needed. Anesthesiology Discharge Order Discharge Order Patient is doing well, no complaints, stable vital signs, no apparent adverse anesthesia problems. No complications reported per nursing. QUINTEN LINDSEY CRNA Feb 21, 2021 14:29
--- NOTE | 2021-02-21 15:27 | OPERATIVE REPORT ---
DATE OF SERVICE: 02/21/2021 PREOPERATIVE DIAGNOSIS: History of polyps. POSTOPERATIVE DIAGNOSIS: Colon polyps. PROCEDURES PERFORMED: Colonoscopy with hot biopsy polypectomy x7 with fulguration x2. SURGEON: Deanne May DO. ANESTHESIA: Per ONCOLOGY NAVIGATOR. ESTIMATED BLOOD LOSS: None. COMPLICATIONS: None. INDICATIONS FOR PROCEDURE: The patient is a 51-year-old female with history of colon polyps. She understands the risks and benefits of the procedures and wished to proceed with the procedure. Consent was signed in the chart. DESCRIPTION OF PROCEDURE: The patient was taken to the endoscopy suite and placed in a left lateral recumbent position. Timeout was performed. Digital rectal exam was performed. There were no palpable polyps, masses or ulcerations. Scope was inserted into the rectum, advanced all the way to the cecum with minimal difficulty. Prep was adequate with irrigation and suction. Scope was then slowly retracted back. No polyps, masses or ulcerations within the cecum. In the ascending colon, there were two polyps present, which hot biopsy polypectomy was performed. Scope was then continuously retracted back into the transverse colon, where two more polyps were found, which hot biopsy polypectomy was performed. Scope was then continuously retracted back. No polyps, masses or ulcerations in the descending colon. In the sigmoid colon, a small polyp was present, which hot biopsy polypectomy was performed. Scope was then continuously retracted back in the rectum, where there were two other polyps, which hot biopsy polypectomy was performed. Near these as well, there were two hyperplastic appearing polyps, which were fulgurated. Scope was also retroflexed noting no other pathology. Scope was returned to its normal position, slowly withdrawn until completely removed. The patient tolerated the procedure well without any complications. She was taken to the recovery room in stable condition. RECOMMENDATIONS: The patient will need repeat colonoscopy in one to three years depending on pathology due to the number of polyps. If the patient has any issues before that be seen at that time. The patient will follow up in the office in two weeks. CC: Cate Sanches - requested, unable to deliver. Job ID: [id number] DocumentID: [id number] Dictated Date: 02/21/2021 12:52:43 Door Clamper Date: 02/21/2021 15:26:30 Dictated By: DEANNE MAY DO
== END 2021-02-21 13:00 | disposition home or self-care (01) ==
LOC: ENDO 10:41
PROVIDERS: ATTEND Surgery
DX: Z12.11 Encounter for screening for malignant neoplasm of colon (principal); K62.1 Rectal polyp; D12.2 Benign neoplasm of ascending colon; D12.3 Benign neoplasm of transverse colon; K63.5 Polyp of colon; K21.9 Gastro-esophageal reflux disease without esophagitis; I10 Essential (primary) hypertension; G47.33 Obstructive sleep apnea (adult) (pediatric); J42 Unspecified chronic bronchitis; E07.9 Disorder of thyroid, unspecified; E11.9 Type 2 diabetes mellitus without complications; F32.9 Major depressive disorder, single episode, unspecified; R93.7 Abnormal findings on diagnostic imaging of other parts of musculoskeletal system; F43.10 Post-traumatic stress disorder, unspecified; F17.210 Nicotine dependence, cigarettes, uncomplicated; Z86.010 Personal history of colon polyps; Z79.890 Hormone replacement therapy; Z79.899 Other long term (current) drug therapy; Z79.84 Long term (current) use of oral hypoglycemic drugs; Z90.710 Acquired absence of both cervix and uterus; Z90.49 Acquired absence of other specified parts of digestive tract; Z80.1 Family history of malignant neoplasm of trachea, bronchus and lung; Z80.0 Family history of malignant neoplasm of digestive organs
CPT/HCPCS: 82947; 88305

== ENCOUNTER → 2021-04-18 | Outpatient (CLI) | payer OTHER ==
[~2021-04-18] MED LIST changes: -LACTATED RINGERS 1,000 ML IV STA
== END ==
LOC: CARD 08:30
PROVIDERS: ATTEND Internal Medicine Cardiovascular Disease
DX: I11.9 Hypertensive heart disease without heart failure (principal)
CPT/HCPCS: 93306

== ENCOUNTER → 2021-05-03 | Outpatient (CLI) | payer OTHER ==
[~2021-05-03] MED LIST changes: +CATHETER FLUSH 10 ML SYR IV PRN; +MONT-40 PO; -MONT10TA32 PO
[2021-05-03 09:29] VITALS: BP 141/74
--- NOTE | 2021-05-03 11:59 | Cardiology Stress Test Report ---
Stress Test Report Date of Procedure/Referring: Date of Procedure: May 03, 2021 PCP Demetri Gray MD Admitting Physician [place] Indications: HTN Baseline Heart Rate: 90 Baseline Blood Pressure: Blood Pressure Systolic: 141 Blood Pressure Diastolic: 74 Vital Signs Date Time Temp Pulse Resp B/P (MAP) Pulse Ox O2 Delivery O2 Flow Rate FiO2 05/03/21 09:29 67 18 141/74 (96) 98 Room Air Baseline Vital Signs Vital Signs Date Time Temp Pulse Resp B/P (MAP) Pulse Ox O2 Delivery O2 Flow Rate FiO2 05/03/21 09:29 67 18 141/74 (96) 98 Room Air Baseline EKG: Baseline EKG: NSR Summary: After explaining the procedure and details to the patient, she signed the consent and was brought to the stress nuclear laboratory. Patient exercised on standard Enrike protocol, EKG, heart rate and blood pressure were monitored continuously, resting and stress doses of radio tracer were injected, imaging was acquired and reviewed in the short axis, horizontal long axis and vertical long axis views Patient was able to exercise for a total of 3 minutes on Enrike protocol, METs 4.6 Maximum heart rate 143 Maximum blood pressure 141/74 Stress EKG, Minimal nondiagnostic changes Recovery EKG, Return to baseline TID: 0.93 SSS: 5 SDS: 4 EF: 82 Conclusion: 1. Fair exercise tolerance for a total of 3 minutes on standard Enrike protocol, 4.6 METS achieving 85% of maximal expected heart rate 2. Appropriate heart rate and blood pressure response to exercise return to bas primo during recovery 3. Nondiagnostic EKG changes with exercise return to baseline during recovery 4. No significant ischemia or infarction on SPECT images 5. Normal left ventricular size, EF 82% DEMETRI GRAY MD May 03, 2021 11:59
== END ==
LOC: CARD 08:00
PROVIDERS: ATTEND Internal Medicine Cardiovascular Disease
DX: I10 Essential (primary) hypertension (principal)
CPT/HCPCS: 78452; 93017; A9502

== ENCOUNTER → 2021-07-13 | Outpatient (CLI) | payer OTHER ==
[~2021-07-13] MED LIST changes: -CATHETER FLUSH 10 ML SYR IV PRN; -MMT17NA NS; +MOME17SP4 NS
--- NOTE | 2021-07-13 12:47 | Diagnostic Imaging Report ---
EXAMINATION: CT abdomen and pelvis without contrast. TECHNIQUE: Multiple contiguous axial images were obtained through the abdomen and pelvis without the use of intravenous contrast. All CT scans use one or more of the following dose optimizing techniques: automated exposure control, MA and/or KvP adjustment based on patient size and exam type or iterative reconstruction. HISTORY: Urinary tract infection. COMPARISON: None available. FINDINGS: Limited views of the lower thorax are unremarkable. The liver is normal without focal lesion. There is no biliary ductal dilation. Gallbladder is surgically absent. Pancreas is normal. Spleen is normal. There is a 12 mm left adrenal adenoma. Cyst is present in the right kidney. No suspicious renal lesions are seen. No renal or ureteral stones. There is no hydronephrosis. Urinary bladder is normal. Bowel is normal in caliber without obstruction or inflammation. There is a small fat-containing umbilical hernia. No free fluid or air. No abdominal or pelvic lymphadenopathy. Aorta is normal in caliber without aneurysm. There are no suspicious osseous lesions. IMPRESSION: 1. No acute abnormality in the abdomen or pelvis. Dictated by: Dictated on workstation # [id number]
== END ==
LOC: RAD 11:45
PROVIDERS: ATTEND Urology
DX: Z87.440 Personal history of urinary (tract) infections (principal)
CPT/HCPCS: 74176

== ENCOUNTER → 2021-11-30 | Outpatient (CLI) | payer OTHER ==
[~2021-11-30] MED LIST changes: +RT-ALBUTEROL SULF 2.5 MG/3 ML PRE-MIX VIAL INH ONE
== END ==
LOC: RT 10:45
PROVIDERS: ATTEND Nurse Practitioner Family
DX: G47.33 Obstructive sleep apnea (adult) (pediatric) (principal); E66.01 Morbid (severe) obesity due to excess calories
CPT/HCPCS: 94060; 94726; 94729

== ENCOUNTER 2022-03-30 12:28 | Emergency (ER) | payer OTHER ==
[~2022-03-30] VITALS: Ht 170.2 cm; Wt 113.4 kg
[~2022-03-30 12:28] MED LIST changes: -RT-ALBUTEROL SULF 2.5 MG/3 ML PRE-MIX VIAL INH ONE
--- NOTE | 2022-03-30 12:59 | ED Cardiac General ---
History of Present Illness General Chief Complaint: Cardiac/General Problems Stated Complaint: AFIB SYMPTOMS LAST NIGHT Nursing Triage Note: pt ambulatory to room. states her fitbit showed she had "22 notifications of afib during the night last night." pt states she called Dr Cortez office and they suggested she come to ER for checkup. pt states she had also been feeling sob, nauseated, and had headache yesterday and today. pt states she has no hx of afib but states she has "regular SVTs." pt denies chest pain. pt is A&Ox4, speech normal in triage. Source: patient Exam Limitations: no limitations History of Present Illness Date Seen by Provider: Mar 30, 2022 Time Seen by Provider: 12:46 Initial Comments Patient is a 52-year-old who presents to the emergency room with a chief complaint of concern for A. fib. Patient states that over the last couple of weeks she has had persistent feelings of nausea and last night she was extremely fatigued more than her usual. She states she looked at her Fitbit watch this morning and she had 22 notifications for concerns for atrial fibrillation. She has never noticed this before on her watch in the past. She has no personal history of atrial fibrillation. She sees Dr. Gray for management of her hypertension. She has a history of diabetes. She tells me that she had a stress test within the last year with Dr. Gray. No heart catheterization. She states she has had a mild headache for the last couple of days but migraine headaches are common for her. She has a history she tells me of paroxysmal supraventricular tachycardia. She has had no recent illnesses. No fevers, chills. No URI symptoms. No chest pain. She has some chronic shortness of breath with cough, she is a smoker. No problems with bowel or bladder. No swelling in her legs. She is on daily baby aspirin. 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 Associated Systoms: Headaches, Malaise, Nausea/Vomiting (nausea without vomiting) Allergies and Home Medications Allergies Coded Allergies: sumatriptan (Unverified Allergy, Unknown, 11/12/11) sumatriptan succinate (Unverified Allergy, Unknown, 11/12/11) ergotamine (Verified Adverse Reaction, Mild, VOMITING, 09/06/12) sulfamethoxazole (Verified Adverse Reaction, Mild, HIVES, 09/06/12) trimethoprim (Verified Adverse Reaction, Mild, HIVES, 09/06/12) Uncoded Allergies: PCN (Allergy, Unknown, HIVES, 12/03/12) Patient Home Medication List Home Medication List Reviewed: Yes Albuterol Sulfate (Proair Hfa) 1 Puff Puff, 2 PUFF IH Q6H, (Reported) Entered as Reported by: JIM GIPSON on 02/14/21 131 Brexpiprazole (Rexulti) 1 Mg Tablet, 1 MG PO DAILY, (Reported) Entered as Reported by: JIM GIPSON on 02/14/21 131 Budesonide/Formoterol Fumarate (Symbicort 160-4.5 Mcg Inhaler) 10.2 Gm Hfa.aer.ad, 2 PUFF IH BID, (Reported) Entered as Reported by: JIM GIPSON on 02/14/21 1255 Buspirone Hcl (Buspar Tablet) 5 Mg Tab, 7.5 MG PO BID, (Reported) Entered as Reported by: VERA SÁNCHEZ on 12/03/12 1345 Cetirizine Hcl (Zyrtec) 10 Mg Capsule, 10 MG PO DAILY, (Reported) Entered as Reported by: ZULY RENDON on 10/16/12 0803 Clonidine HCl (Clonidine HCl) 0.1 Mg Tablet, 0.1 MG PO BID, (Reported) Entered as Reported by: JIM GIPSON on 02/14/21 131 Cyanocobalamin (Vitamin B-12) (B-12) 2,500 Mcg Lozenge, 2,500 MCG SL DAILY, (Reported) Entered as Reported by: JIM GIPSON on 02/14/21 131 Diclofenac Sodium (Diclofenac Sodium) 75 Mg Tablet.dr, 75 MG PO BID, (Reported) Entered as Reported by: TONIE JACKSON on 09/06/12 1850 Duloxetine HCl (Duloxetine HCl) 60 Mg Capsule.dr, 120 MG PO DAILY, (Reported) Entered as Reported by: JIM GIPSON on 02/14/21 131 Duloxetine Hcl (Cymbalta) 60 Mg Capsule.dr, 60 MG PO DAILY, (Reported) Entered as Reported by: TONIE JACKSON on 09/06/121849 Empagliflozin (Jardiance) 10 Mg Tablet, 10 MG PO DAILY, (Reported) Entered as Reported by: JIM GIPSON on 02/14/211316 Gemfibrozil (Gemfibrozil) 600 Mg Tablet, 600 MG PO DAILY, (Reported) Entered as Reported by: JIM GIPSON on 02/14/211316 Glipizide (Glipizide ER) 10 Mg Tab.er.24, 10 MG PO DAILY, (Reported) Entered as Reported by: JIM GIPSON on 02/14/211316 Hydrochlorothiazide (Hydrochlorothiazide) 25 Mg Tablet, 25 MG PO DAILY, (Reported) Entered as Reported by: JIM GIPSON on 02/14/211316 Hydrocodone Bit/Acetaminophen (Lorcet 5/325 Mg) 1 Tab Tablet, 1-2 TAB PO q 4-6 h rs PRN Prescribed by: MASOUD WALLER on 12/10/12 1000 Ibuprofen (Motrin) 600 Mg Tab, 600 MG PO Q6H PRN, (Reported) Entered as Reported by: VERA SÁNCHEZ on 12/03/12 1345 Levothyroxine Sodium (Levothyroxine) 112 Mcg Capsule, 112 MCG PO DAILY, (Reported) Entered as Reported by: JIM GIPSON on 02/14/211316 Lisinopril (Lisinopril) 20 Mg Tablet, 20 MG PO DAILY, (Reported) Entered as Reported by: JIM GIPSON on 02/14/211316 Meloxicam (Mobic) 7.5 Mg Tablet, 7.5 MG PO BID, (Reported) Entered as Reported by: JIM GIPSON on 02/14/211316 Metformin HCl (Metformin HCl) 500 Mg Tablet, 500 MG PO BID, (Reported) Entered as Reported by: JIM GIPSON on 02/14/211316 Metoprolol Tartrate (Metoprolol Tartrate 25 Mg) 25 Mg Tablet, 25 MG PO BID, (Reported) Entered as Reported by: TONIE JACKSON on 09/06/121849 Mometasone Furoate (Nasonex) 17 Gm Naspr, 17 GM NS DAILY, (Reported) Entered as Reported by: JIM GIPSON on 02/14/21 131 Montelukast Sodium (Montelukast Sodium) 10 Mg Tablet, 10 MG PO DAILY, (Reported) Entered as Reported by: JIM GIPSON on 02/14/211316 Multivitamin (Multi-Vitamin Daily) 1 Each Tablet, 1 TAB PO DAILY, (Reported) Entered as Reported by: TONIE JACKSON on 09/06/12 1850 [place] 3 Polyunsat Fatty Acids (Fish Oil) 1,000 Mg Cap, 2,000 MG PO BID, (Reported) Entered as Reported by: MALCOLM DE LA TORRE on 11/09/11 1344 Oxybutynin Chloride (Oxybutynin Chloride ER) 10 Mg Tab.er.24, 10 MG PO DAILY, (Reported) Entered as Reported by: JIM GIPSON on 02/14/211316 Pantoprazole Sodium (Pantoprazole Sodium) 40 Mg Tablet.dr, 40 MG PO DAILY, (Reported) Entered as Reported by: JIM GIPSON on 02/14/211316 Pseudoephedrine HCl (Sudafed 12 Hour) 120 Mg Tablet.er, 120 MG PO BID, ( Reported) Entered as Reported by: JIM GIPSON on 02/14/211316 Spironolactone (Spironolactone) 25 Mg Tablet, 25 MG PO DAILY, (Reported) Entered as Reported by: JIM GIPSON on 02/14/211316 Review of Systems Review of Systems Constitutional: see HPI, malaise EENTM: No Symptoms Reported Respiratory: Shortness of Air (chronic) Gastrointestinal: Nausea Genitourinary: No Symptoms Reported Musculoskeletal: no symptoms reported Skin: no symptoms reported Psychiatric/Neurological: No Symptoms Reported All Other Systems Reviewed Negative Unless Noted: Yes Past Uknhtjb-Kzftir-Ivlxda Hx Patient Social History Tobacco Use?: Yes Tobacco type used: Cigarettes Smoking Status: Current Everyday Smoker Use of E-Cig and/or Vaping dev: No Substance use?: No Alcohol Use?: No Immunizations Up To Date Tetanus Booster (TDap): Unknown Influenza Vaccine Up-to-Date: No; Not Current First/Initial COVID19 Vaccinat: 08/09/2020 Second COVID19 Vaccination Cale: 08/30/2020 Third COVID19 Vaccination Date: [employer] Seasonal Allergies Seasonal Allergies: Yes Past Medical History Surgeries: Yes (DENTAL, HEMORRHOIDDECTOMY, UTERINE ABLATION, COLONOSCOPY) Gallbladder, Hysterectomy Respiratory: Yes Chronic Bronchitis, Sleep Apnea Currently Using CPAP: Yes Cardiac: Yes (SVT) High Cholesterol, Hypertension Neurological: Yes (MIGRAINES) Headaches /Migraines Reproductive Disorders: Yes (MENORRHAGIA, RIGHT OVARIAN CYST) 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 Genitourinary: Yes UTI-Chronic Gastrointestinal: Yes (IBS) Gastroesophageal Reflux, Chronic Constipation, Hemorrhoids, Chronic Diarrhea, Polyps, Hiatal Hernia, Irritable Bowel Musculoskeletal: Yes (CHRONIC GENERALIZED PAIN) Arthritis, Fibromyalgia, Chronic Back Pain Endocrine: Yes Hypothyroidsim, Diabetes, Non-Insulin dep HEENT: No Cancer: No Psychosocial: Yes Anxiety, PTSD, Depression Integumentary: No Blood Disorders: No Adverse Reaction/Blood Tranf: No Physical Exam Vital Signs Vital Signs - First Documented 03/30/22 12:41 Temp 36.8 Pulse 61 Resp 14 B/P (MAP) 113/59 (77) Pulse Ox 94 Capillary Refill : Height, Weight, BMI Height: 5'7" Weight: 275lbs. oz. 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 Norm as Tested Skin: Normal Color, Warm/Dry Progress/Results/Core Measures Results/Orders Lab Results Laboratory Tests Test 03/30/22 13:14 Range/Units White Blood Count 9.6 4.3-11.0 10^3/uL Red Blood Count 4.64 3.80-5.11 10^6/uL Hemoglobin 14.1 11.5-16.0 g/dL Hematocrit 42 35-52 % Mean Corpuscular Volume 91 80-99 fL Mean Corpuscular Hemoglobin 30 25-34 pg Mean Corpuscular Hemoglobin Concent 33 32-36 g/dL Red Cell Distribution Width 12.7 10.0-14.5 % Platelet Count 344 130-400 10^3/uL Mean Platelet Volume 9.4 9.0-12.2 fL Immature Granulocyte % (Auto) 0 % Neutrophils (%) (Auto) 57 42-75 % Lymphocytes (%) (Auto) 33 12-44 % Monocytes (%) (Auto) 7 0-12 % Eosinophils (%) (Auto) 3 0-10 % Basophils (%) (Auto) 0 0-10 % Neutrophils # (Auto) 5.4 1.8-7.8 X 10^3 Lymphocytes # (Auto) 3.1 1.0-4.0 X 10^3 Monocytes # (Auto) 0.7 0.0-1.0 X 10^3 Eosinophils # (Auto) 0.3 0.0-0.3 10^3/uL Basophils # (Auto) 0.0 0.0-0.1 10^3/uL Immature Granulocyte # (Auto) 0.0 0.0-0.1 10^3/uL Sodium Level 139 135-145 MMOL/L Potassium Level 3.7 3.6-5.0 MMOL/L Chloride Level 102 98-107 MMOL/L Carbon Dioxide Level 27 21-32 MMOL/L Anion Gap 10 5-14 MMOL/L Blood Urea Nitrogen 23 H 7-18 MG/DL Creatinine 0.90 0.60-1.30 MG/DL Estimat Glomerular Filtration Rate 76 BUN/Creatinine Ratio 26 Glucose Level 116 H 70-105 MG/DL Calcium Level 10.1 8.5-10.1 MG/DL Corrected Calcium 8.5-10.1 MG/DL Magnesium Level 2.1 1.6-2.4 MG/DL Total Bilirubin 0.3 0.1-1.0 MG/DL Aspartate Amino Transf (AST/SGOT) 19 5-34 U/L Alanine Aminotransferase (ALT/SGPT) 31 0-55 U/L Alkaline Phosphatase 93 40-136 U/L Total Protein 7.2 6.4-8.2 GM/DL Albumin 4.6 H 3.2-4.5 GM/DL My Orders Orders - YOGESH WONG MD Ekg Tracing (03/30/22 12:41) Ed Iv/Invasive Line Start (03/30/22 12:55) Cbc With Automated Diff (03/30/22 12:55) Comprehensive Metabolic Panel (03/30/22 12:55) Magnesium (03/30/22 12:55) Chest 1 View, Ap/Pa Only (03/30/22 12:55) Ekg Tracing (03/30/22 14:08) Vital Signs/I&O 03/30/22 12:41 Temp 36.8 Pulse 61 Resp 14 B/P (MAP) 113/59 (77) Pulse Ox 94 Blood Pressure Mean: 77 Progress Progress Note : Time: 14:30 Progress Note Patient reassessed, resting comfortably, no complaints of palpitations, shortness of breath or dizziness labs reviewed, completely within normal limits. EKG #1 and #2 both showed normal sinus bradycardia in the 50s. Blood pressure is good. She verbalizes no complaints. I reassured her. Advised her to follow-up with Dr. Gray on Saturday as scheduled. I did note while I was talking to her on telemetry that it seems she was throwing a bunch of premature atrial contractions. I could never catch discrete A. fib on telemetry. I advised her to monitor her Fitbit and if she became symptomatic with shortness of breath, chest pain, dizziness or tachycardia that she needs to come back to the emergency room for reevaluation. She verbalized understanding. All questions are sought and answered. Initial ECG Impression Date: Mar 30, 2022 Initial ECG Impression Time: 12:44 Initial ECG Rate: 58 Initial ECG Rhythm: S.Edgardo Initial ECG Intervals: Normal Initial ECG Impression: Nonspecific Changes EKG : EKG Time: 14:16 Rate: 57 Rhythm: S.Edgardo Intervals: Normal ECG Comparisson: Unchanged ECG Impression: Nonspecific Changes Diagnostic Imaging Diagonstic Imaging: Xray Plain Films/CT/US/NM/MRI: chest Comments [facility], [facility]. [place], [place] NAME: SENDY LOERA MED REC#: [id number] PT STATUS: REG ER : 1970 PHYSICIAN: YOGESH WONG MD ADMIT DATE: 03/30/22/ER Draft Date of Exam:03/30/22 CHEST 1 VIEW, AP/PA ONLY INDICATION: Nausea and weakness. EXAMINATION: Portable chest, 1:11 p.m. FINDINGS: Heart size and pulmonary vascularity are normal. Lungs are clear. There are no effusions or pneumothoraces. IMPRESSION: No acute abnormalities in the chest. Dictated on workstation # [id number] Dict: 03/30/22 1333 Trans: 03/30/22 1334 [id number] Interpreted by: CLAUDIA DOMINGUEZ MD Electronically signed by: Departure Impression Primary Impression: concern for a fib Additional Impression: Nausea Disposition: HOME, SELF-CARE Condition: Stable Departure-Patient Inst. Decision time for Depature: 14:32 Referrals: [facility] [place] (PCP) Primary Care Physician DALTON CARNEY APRN (Family) Primary Care Physician DEMETRI GRAY MD Patient Instructions: Atrial Fibrillation Add. Discharge Instructions: Drink plenty of fluids to stay well-hydrated. Try and avoid energy drinks over the next couple of days at least until you see Dr. Gray in clinic on Saturday. If you experience palpitations, lightheadedness or dizziness, nausea, chest pain or worsening shortness of breath please come back to the emergency room for reevaluation. Work/School Note: Work Release Form Date Seen in the Emergency Department: Mar 30, 2022 Return to Work: Mar 31, 2022 Copy Copies To 1: DEMETRI GRAY MD Copies To 2: JOSÉ MIGUEL COTTO KATHRYN M MD Mar 30, 2022 12:59
[2022-03-30 13:23] LABS: BASOPHILS % (AUTO) 0 % (0-10); EOSINOPHILS # (AUTO) 0.3 10^3/uL (0.0-0.3); EOSINOPHILS % (AUTO) 3 % (0-10); HEMATOCRIT 42 % (35-52); HEMOGLOBIN 14.1 g/dL (11.5-16.0); LYMPHOCYTES # (AUTO) 3.1 X 10^3 (1.0-4.0); LYMPHOCYTES % (AUTO) 33 % (12-44); MEAN CORPUSCULAR HEMOGLOBIN 30 pg (25-34); MEAN CORPUSCULAR HGB CONC 33 g/dL (32-36); MEAN CORPUSCULAR VOLUME 91 fL (80-99); MEAN PLATELET VOLUME 9.4 fL (9.0-12.2); MONOCYTES # (AUTO) 0.7 X 10^3 (0.0-1.0); MONOCYTES % (AUTO) 7 % (0-12); NEUTROPHILS # (AUTO) 5.4 X 10^3 (1.8-7.8); NEUTROPHILS % (AUTO) 57 % (42-75); PLATELET COUNT 344 10^3/uL (130-400); WHITE BLOOD COUNT 9.6 10^3/uL (4.3-11.0)
--- NOTE | 2022-03-30 13:34 | Diagnostic Imaging Report ---
INDICATION: Nausea and weakness. EXAMINATION: Portable chest, 1:11 p.m. FINDINGS: Heart size and pulmonary vascularity are normal. Lungs are clear. There are no effusions or pneumothoraces. IMPRESSION: No acute abnormalities in the chest. Dictated by: Dictated on workstation # [id number]
[2022-03-30 13:38] LABS: ALBUMIN 4.6 GM/DL (3.2-4.5)
[2022-03-30 13:39] LABS: CHLORIDE 102 MMOL/L (98-107); POTASSIUM 3.7 MMOL/L (3.6-5.0); SODIUM 139 MMOL/L (135-145)
[2022-03-30 13:40] LABS: CALCIUM 10.1 MG/DL (8.5-10.1)
[2022-03-30 13:41] LABS: GLUCOSE 116 MG/DL (70-105); TOTAL PROTEIN 7.2 GM/DL (6.4-8.2)
[2022-03-30 13:42] LABS: CARBON DIOXIDE 27 MMOL/L (21-32)
[2022-03-30 13:43] LABS: BILIRUBIN,TOTAL 0.3 MG/DL (0.1-1.0)
[2022-03-30 13:45] LABS: ALKALINE PHOSPHATASE 93 U/L (40-136); GFR ESTIMATED 76
[2022-03-30 13:46] LABS: BUN/CREATININE RATIO 26
[2022-03-30 13:48] LABS: ALANINE AMINOTRANSFERASE 31 U/L (0-55); MAGNESIUM 2.1 MG/DL (1.6-2.4)
[2022-03-30 14:44] VITALS: BP 109/73
== END 2022-03-30 14:43 | disposition home or self-care (01) ==
LOC: EDUNIT# 12:28 → ER 12:30
DX: R11.0 Nausea (principal); R00.0 Tachycardia, unspecified; G47.30 Sleep apnea, unspecified; F17.210 Nicotine dependence, cigarettes, uncomplicated; Z99.89 Dependence on other enabling machines and devices
CPT/HCPCS: 36415; 71045; 80053; 83735; 85025; 93005

== ENCOUNTER → 2022-04-12 | Outpatient (CLI) | payer OTHER ==
[~2022-04-12] MED LIST changes: +ALBU8.5H6 IH; -RT-ALBUINH IH
== END ==
LOC: CARD 10:11
PROVIDERS: ATTEND Internal Medicine Cardiovascular Disease
DX: Z51.11 Encounter for antineoplastic chemotherapy (principal); I11.9 Hypertensive heart disease without heart failure
CPT/HCPCS: 93306

== ENCOUNTER → 2022-07-04 | Outpatient (CLI) | payer OTHER ==
[~2022-07-04] VITALS: Ht 170 cm; Wt 115.0 kg
[~2022-07-04] MED LIST changes: +CATHETER FLUSH 10 ML SYR IVP PRN; +REGADENOSON 0.4 MG/5 ML SYR (LEXISCAN) IV ONE
[2022-07-04 13:18] VITALS: BP 104/71
--- NOTE | 2022-07-04 15:36 | Cardiology Stress Test Report ---
Stress Test Report Date of Procedure/Referring: Date of Procedure: Jul 04, 2022 [facility] Admitting Physician Admitting Physician: Attending Physician: Demetri Gray MD Indications: CP Baseline Heart Rate: 61 Baseline Blood Pressure: Blood Pressure Systolic: 104 Blood Pressure Diastolic: 71 Baseline Vitals Vital Signs Date Time Temp Pulse Resp B/P (MAP) Pulse Ox O2 Delivery O2 Flow Rate FiO2 07/04/22 13:18 61 104/71 (82) 96 Baseline EKG: Baseline EKG: NSR Summary After explaining the procedure to the patient, she signed a consent and then brought to the stress nuclear laboratory. Patient received 0.4 mg Lexiscan for stress test, ECG, heart rate and blood pressure were monitored continuously. Resting and stress dose of radio tracer were injected, imaging was acquired and reviewed in short axis, horizontal long axis and vertical long axis views. TID: 1.21 SSS: 4 SDS: 4 EF: 71 1. Patient tolerated Lexiscan well 2. Breast attenuation with mild decrease uptake at the mid anterior wall with subtle reversibility. Overall there is no significant ischemia or infarction on SPECT images 3. Normal left ventricular size, ejection fraction 71% Copy Copies To 1: [facility]/ DEMETRI GRAY MD Jul 04, 2022 15:36
== END ==
LOC: CARD 11:24
PROVIDERS: ATTEND Internal Medicine Cardiovascular Disease
DX: I10 Essential (primary) hypertension (principal); I25.10 Atherosclerotic heart disease of native coronary artery without angina pectoris
CPT/HCPCS: 78452; 93017

== ENCOUNTER 2022-07-18 05:54 | Outpatient (CLI) | payer OTHER ==
[~2022-07-18] VITALS: Ht 170.2 cm; Wt 115.7 kg
[~2022-07-18 05:54] MED LIST changes: -CATHETER FLUSH 10 ML SYR IVP PRN; -REGADENOSON 0.4 MG/5 ML SYR (LEXISCAN) IV ONE
[2022-07-18] MEDS ORDERED: RIVA2.5T5 PO (12:25)
[2022-07-18] MEDS ORDERED: GUAI600T43 PO (12:26)
== END 2022-07-18 12:31 ==
LOC: PREOP 05:54
PROVIDERS: ATTEND Surgery
DX: Z01.818 Encounter for other preprocedural examination (principal)

== ENCOUNTER 2022-08-14 12:37 | Day surgery (SDC) | payer OTHER ==
[~2022-08-14] VITALS: Ht 170 cm; Wt 115.7 kg
[~2022-08-14 12:37] MED LIST changes: +GUAI600T43 PO; +RIVA2.5T5 PO
[2022-08-14] MEDS ORDERED: LACTATED RINGERS 1,000 ML IV STA (12:39)
[2022-08-14] MEDS ORDERED: HURRICAINE EXT TUBE (BENZOCAINE) XX PRN (12:45)
[2022-08-14 13:00] VITALS: BP 119/59
[2022-08-14] MEDS ORDERED: PROPOFOL INJECTION 50 ML IV ONE (14:04)
[2022-08-14] MEDS ORDERED: proPOfol 200 MG/20 ML (DIPRIVAN) VIAL IV ONE (14:52)
[2022-08-14 14:57] VITALS: BP 117/65
--- NOTE | 2022-08-14 14:57 | Progress Note-Post Operative ---
Post-Operative Progess Note Surgeon (s)/Patient Coordinator Front Desk (s) Surgeon DEANNE RAJPUT DO Patient Coordinator Front Desk: na Pre-Operative Diagnosis hx polyps, family history of colon cancer, GERD, nausea Post-Operative Diagnosis Gastritis Diverticulosis Colon polyps Esophageal polyp Procedure & Operative Findings Date of Procedure 08/14/22 Procedure Performed/Findings EGD with biopsies x 3 and cold biopsy polypectomy x 1 Colonoscopy with hot biopsies polypectomy x 12 Anesthesia Type per [facility] Estimated Blood Loss Estimated blood loss (mL): none Specimens/Packing Specimens Removed biopsies of antrum x1, bodyx1, and GEx1 Cold biopsy of proximal esophagus polyp x1 Cecal polyp x2, Ascending colon polyp x2, Sigmoid colon polyp x 4, rectal polyps x 4 DEANNE RAJPUT DO Aug 14, 2022 14:57
[2022-08-14 15:00] VITALS: BP 111/64
--- NOTE | 2022-08-14 15:00 | Discharge Inst-Simple/Standard ---
Discharge Inst-Standard Discharge Medications New, Converted or Re-Newed RX: Transmitted to Pharmacy Patient Instructions/Follow Up Plan of Care/Instructions/FU: 2 week Yadira Activity as Tolerated: Yes Discharge Diet: Regular Diet (high fiber) DEANNE RAJPUT DO Aug 14, 2022 14:59
--- NOTE | 2022-08-14 15:02 | Anesthesia-General Post-Op ---
MAC Patient Condition Mental Status/LOC: Same as Preop Cardiovascular: Satisfactory Nausea/Vomiting: Absent Respiratory: Satisfactory Pain: Controlled Complications: Absent Post Op Complications Complications None Follow Up Care/Instructions Patient Instructions None needed. Anesthesiology Discharge Order Discharge Order Patient is doing well, no complaints, stable vital signs, no apparent adverse anesthesia problems. No complications reported per nursing. CAT HERNÁNDEZ DO Aug 14, 2022 15:02
[2022-08-14 15:23] VITALS: BP 111/64
--- NOTE | 2022-08-14 19:49 | OPERATIVE REPORT ---
DATE OF SERVICE: 08/14/2022 PREOPERATIVE DIAGNOSES: History of polyps, family history of colon cancer, gastroesophageal reflux disease, nausea. POSTOPERATIVE DIAGNOSES: Gastritis, diverticulosis, colon polyps, esophageal polyp. PROCEDURES: EGD with biopsies of the antrum, body and GE junction. Cold biopsy polypectomy of proximal esophageal polyp x1, colonoscopy with hot biopsy polypectomy x12. SURGEON: Deanne May DO ANESTHESIA: Per MDA. ESTIMATED BLOOD LOSS: None. COMPLICATIONS: None. INDICATIONS: The patient is a 52-year-old female with nausea symptoms and GERD symptoms. She also has a history of polyps, family history of colon cancer. She understands risks and benefits of procedure and wished to proceed. Consent was signed and in chart. DESCRIPTION OF PROCEDURE: The patient was taken to endoscopy suite, placed in left lateral recumbent position. Timeout was performed. Scope was inserted in the mouth, down the esophagus, stomach and the duodenum without difficulty. No polyps, masses or ulcerations. Scope was then slowly retracted back in the stomach where it was further insufflated. Evidence of gastritis present. Biopsy of the antrum was obtained. Biopsy of the body was also obtained. Scope was retroflexed noting no other pathology. Scope was returned to its normal position, slowly withdrawn until distal esophagus. Biopsy of GE junction was obtained. Scope was then slowly retracted back, polyp in the proximal esophagus was present, which cold biopsy polypectomy was performed. Scope was then slowly retracted back until completely removed, noting no other pathology. Digital rectal exam was performed. No palpable polyps, masses or ulcerations. Scope was inserted in the rectum, advanced all the way to the cecum with minimal difficulty. Prep was adequate with irrigation and suction. Scope was then slowly retracted back. Two cecal polyps were present, which hot biopsy polypectomy was performed. Scope was then continuously retracted back in the ascending colon where 2 polyps were present, which hot biopsy polypectomy was performed. Also noted diverticulosis minimal throughout the colon. Scope was then slowly retracted back. No polyps, masses or ulcerations in the remainder of the ascending, transverse and descending colon. In the sigmoid colon, 4 polyps were present, which hot biopsy polypectomy was performed. Scope was then continuously retracted back to the rectum, where another four polyps were present, which hot biopsy polypectomy was performed. Scope was retroflexed, noting no other pathology. Scope was returned to its normal position, slowly withdrawn until completely removed. The patient tolerated the procedure well without any complications, taken to recovery in stable condition. RECOMMENDATIONS: The patient will need repeat colonoscopy in one year due to the number of polyps. The patient to continue on her Protonix. Await biopsy results. Further recommendation pending. Any issues before that, be seen at that time. The patient will follow up in 2 weeks to discuss all pathology. Job ID: [id number] DocumentID: [id number] Dictated Date: 08/14/2022 14:59:27 [employer] Date: 08/14/2022 19:46:00 Dictated By: DEANNE MAY DO
== END 2022-08-14 15:26 | disposition home or self-care (01) ==
LOC: ENDO 12:37
PROVIDERS: ATTEND Surgery
DX: Z12.11 Encounter for screening for malignant neoplasm of colon (principal); D12.0 Benign neoplasm of cecum; K29.70 Gastritis, unspecified, without bleeding; K21.00 Gastro-esophageal reflux disease with esophagitis, without bleeding; K57.30 Diverticulosis of large intestine without perforation or abscess without bleeding; D13.0 Benign neoplasm of esophagus; D12.2 Benign neoplasm of ascending colon; D12.5 Benign neoplasm of sigmoid colon; K62.1 Rectal polyp; E11.9 Type 2 diabetes mellitus without complications; F17.210 Nicotine dependence, cigarettes, uncomplicated; Z79.4 Long term (current) use of insulin; Z79.899 Other long term (current) drug therapy; Z79.01 Long term (current) use of anticoagulants; Z80.0 Family history of malignant neoplasm of digestive organs

== ENCOUNTER → 2023-02-26 | Outpatient (CLI) | payer OTHER ==
[2023-02-26 07:56] LABS: HEMATOCRIT 43 % (35-52); HEMOGLOBIN 14.2 g/dL (11.5-16.0); MEAN CORPUSCULAR HEMOGLOBIN 30 pg (25-34); MEAN CORPUSCULAR HGB CONC 33 g/dL (32-36); MEAN CORPUSCULAR VOLUME 91 fL (80-99); MEAN PLATELET VOLUME 9.5 fL (9.0-12.2); PLATELET COUNT 297 10^3/uL (130-400); WHITE BLOOD COUNT 11.2 10^3/uL (4.3-11.0)
[2023-02-26 08:18] LABS: CALCIUM 9.6 MG/DL (8.5-10.1); CREATININE SERUM 0.84 MG/DL (0.60-1.30); MAGNESIUM 2.1 MG/DL (1.6-2.4); POTASSIUM 3.8 MMOL/L (3.6-5.0)
== END ==
LOC: LAB 07:31
PROVIDERS: ATTEND Internal Medicine Cardiovascular Disease
DX: E78.5 Hyperlipidemia, unspecified (principal); I10 Essential (primary) hypertension; I48.0 Paroxysmal atrial fibrillation
CPT/HCPCS: 36415; 80048; 83735; 85027

== ENCOUNTER 2023-04-05 19:39 | Outpatient (CLI) | payer OTHER | END 2023-04-06 06:41 | LOC: CANPRECLI → SLEEP 19:39 | PROVIDERS: ATTEND Nurse Practitioner Family | DX: G47.33 Obstructive sleep apnea (adult) (pediatric) (principal); I48.0 Paroxysmal atrial fibrillation; J45.40 Moderate persistent asthma, uncomplicated; Z87.891 Personal history of nicotine dependence | CPT/HCPCS: 95811 ==